=== PATIENT | female | born 2000 | race Asian ===

== ENCOUNTER 2022-07-26 10:47 | Emergency (ER) | payer SELFPAY ==
[~2022-07-26] VITALS: Ht 165.1 cm; Wt 70.0 kg
[2022-07-26] MEDS ORDERED: MORPHINE SULFATE 4 MG/ML CPJ (NOT FOR IM USE) IV STA (14:34)
[2022-07-26] MEDS ORDERED: SODIUM CHLORIDE 0.9% 1,000 ML IV ONE (14:45)
[2022-07-26 15:17] LABS: BASOPHILS % 0.4 % (0.0-2.0); EOSINOPHILS % 0.1 % (0.0-5.0); HEMATOCRIT. 32.1 % (36.0-48.0); HEMOGLOBIN. 10.6 g/dL (12.0-16.0); LYMPHOCYTES % 10.7 % (20.0-50.0); MEAN CORPUSCULAR HEMOGLOBIN 29.7 pg (28.0-32.0); MEAN PLATELET VOLUME 7.8 fl (7.4-10.4); MONOCYTES % 12.4 % (2.0-8.0); NEUTROPHILS % 76.4 % (40.0-76.0); PLATELET 482 x1000/uL (130-400); RED BLOOD CELL COUNT 3.56 mill/uL (4.2-5.4); RED CELL DISTRIBUTION WIDTH 14.7 % (11.6-14.6)
[2022-07-26 15:29] LABS: CHLORIDE 96 mEq/L (98-107)
[2022-07-26 16:19] VITALS: BP 105/60
[2022-07-26] MEDS ORDERED: POTASSIUM CHLORIDE 20MEQ/PACKET PO NR (16:30)
[2022-07-26] MEDS ORDERED: MORPHINE SULFATE 4 MG/ML CPJ (NOT FOR IM USE) IV NR (16:30)
[2022-07-26] MEDS ORDERED: CEFTRIAXONE 1 G PREMIX 50 ML IV ONE (16:45)
[2022-07-26 17:12] LABS: CLARITY URINE CLOUDY (CLEAR); COLOR URINE DARK YELLOW (YELLOW); KETONES URINE TRACE (NEGATIVE); LEUKOCYTE ESTERASE URINE 3+ (NEGATIVE); NITRITE URINE POSITIVE (NEGATIVE); OCCULT BLOOD URINE 2+ (NEGATIVE); PH URINE 5.5 (4.5-8.0); PROTEIN URINE 1+ (NEGATIVE); SPECIFIC GRAVITY URINE 1.013 (1.005-1.030)
[2022-07-26] MEDS ORDERED: CEPH500C2 MT (17:21)
== END 2022-07-26 19:23 | disposition home or self-care (01) ==
LOC: ER 11:47
DX: R10.9 Unspecified abdominal pain (principal); E87.6 Hypokalemia; Z98.890 Other specified postprocedural states
CPT/HCPCS: 36415; 80053; 81003; 85025; 87077; 87086; 87186; 96361; 96365; 96375; 99284; J0696; J2270; J7030